=== PATIENT | female | born 1965 | race Caucasian/White ===

== ENCOUNTER 2018-06-25 19:35 | Inpatient (IN) ==
[2018-06-25] MEDS ORDERED: *HR* EPINEPHrine 1 MG/ML AMPUL IM ONE (20:15)
[2018-06-25] MEDS ORDERED: Famotidine 20 MG/2 ML VIAL IVP ONE (20:15)
--- NOTE | 2018-06-25 20:15 | Emergency Department Note ---
Disposition Referrals: NONE,PCP [Primary Care Provider] - Allergic Reaction HPI - General Chief complaint: ED Allergic Reaction Stated complaint: Allergic Reaction Time Seen by Provider: 06/25/18 19:52 Source: patient Limitations: no limitations Nursing Notes Reviewed: Yes Vital Signs Reviewed: Yes - History of Present Illness HPI Narrative: 53 yo F with history of - Related Data Home Medications Medication Instructions Recorded Confirmed Oxycodone HCl [Roxybond] 5 mg PO PRN PRN 06/03/18 06/03/18 Tizanidine HCl [Zanaflex] 4 mg PO TID 06/03/18 06/03/18 Previous Rx's Medication Instructions Recorded Venlafaxine XR (24 HR) [Effexor Xr] 150 mg PO DAILY 30 Days #30 02/25/17 cap.er.24h Allergies Allergy/AdvReac Type Severity Reaction Status Date / Time iodine Allergy Severe HIVES/ITCHI Verified 05/03/18 08:53 NG/SWELLING clarithromycin [From Biaxin] AdvReac Vomiting Verified 05/03/18 08:53 codeine AdvReac Vomiting Verified 05/03/18 08:53 Review of Systems: ROS per history of present illness, all other systems reviewed and negative or normal. All systems ED: reviewed and negative except as stated. Review of Systems: As Per HPI Past Medical History - Past Medical History Medical history: Reports: fibromyalgia, hypertension, other Surgical history: Reports: breast surgery, , hip replacement, hysterectomy, orthopedic, other, other Psychiatric history: Reports: anxiety, depression - Social History Smoking Status: Never smoker Smokeless Tobacco Status: No Alcohol use: Reports: none Drug use: Reports: marijuana Physical Exam General: Conversant. No apparent distress. Follow commands. Appears stated age. Neck: No JVD. Trachea midline. Neck supple. Eyes: PERRL. No scleral icterus. HENT: Normocephalic and atraumatic. Moist mucus membranes. Cardiovascular: Regular rate and rhythm. Normal S1 and S2. No murmurs appreciated. Normal capillary refill. Extremities well perfused with 2+ distal pulses bilaterally. No edema. Pulmonary: Normal and equal breath sounds bilaterally, anteriorly and posteriorly. No wheezes, rales, or rhonchi. Not in respiratory distress. Speaks in full sentences. Abdomen: Soft, nondistended, and tontender. No bruits or masses. No guarding. Neuro: Alert and oriented x3. No slurred speech. No focal deficits noted. Skin: Musculoskeletal: No bony abnormalities visualized. Moves all extremities. Psych: Normal mood. Pleasant. Makes appropriate eye contact. - General Limitations: no limitations General appearance: alert, in no apparent distress Course Vital Signs Temperature 98.1 F 06/25/18 19:40 Pulse Rate 93 06/25/18 19:40 Respiratory Rate 18 06/25/18 19:40 Blood Pressure 128/81 06/25/18 19:40 O2 Sat by Pulse Oximetry 97 06/25/18 19:40 Temperature 98.1 F 06/25/18 20:12 Pulse Rate 90 06/25/18 20:12 Respiratory Rate 22 06/25/18 20:12 Blood Pressure 131/82 06/25/18 20:12 O2 Sat by Pulse Oximetry 100 06/25/18 20:12 Oxygen Delivery Oxygen Delivery Room Air
[2018-06-25] MEDS ORDERED: methylPREDNISolone 125 MG/2 ML VIAL IVP ONE (20:34)
--- NOTE | 2018-06-25 20:38 | Emergency Department Note ---
Disposition Clinical Impression: Anaphylaxis Qualifiers: Encounter type: initial encounter Qualified Code(s): T78.2XXA - Anaphylactic shock, unspecified, initial encounter Disposition: Admitted As Inpatient Condition: Good Referrals: NONE,PCP [Non-Partnered Physician] - Forms: ED Satisfaction Letter Allergic Reaction HPI - General Chief complaint: ED Allergic Reaction Stated complaint: Allergic Reaction Time Seen by Provider: 06/25/18 19:52 Source: patient Limitations: no limitations Nursing Notes Reviewed: Yes Vital Signs Reviewed: Yes - History of Present Illness HPI Narrative: Patient presenting to the emergency department for evaluation of possible allergic reaction. Patient had an infected hip joint which underwent surgery approximately [address] Coleman. Patient grew staph aureus and was placed on vancomycin. Patient has PICC line in place. Patient is receiving antibiotics for the last 3 weeks. 4 days ago she noticed the development of her rash. Rash is been progressive in nature involving the chest face and back. Patient also has some involvement around the surgery site itself. Erythematous rash without specific earache area. Concern for drug rash. Patient was given her last dose of vancomycin at 10:30 AM yesterday. Patient was placed on Levaquin. Patient has received 1 dose of Levaquin. Patient states that she started to have some shortness of breath as well as a feeling the middle of her throat. She was unsure if this was worsening allergic reaction versus anxiety. Patient will undergo further evaluation for anaphylaxis versus other. Basic blood work and a vancomycin random level will be checked. - Related Data Home Medications Medication Instructions Recorded Confirmed Oxycodone HCl [Roxybond] 5 mg PO PRN PRN 06/03/18 06/03/18 Tizanidine HCl [Zanaflex] 4 mg PO TID 06/03/18 06/03/18 Previous Rx's Medication Instructions Recorded Venlafaxine XR (24 HR) [Effexor Xr] 150 mg PO DAILY 30 Days #30 02/25/17 cap.er.24h Allergies Allergy/AdvReac Type Severity Reaction Status Date / Time iodine Allergy Severe HIVES/ITCHI Verified 05/03/18 08:53 NG/SWELLING clarithromycin [From Biaxin] AdvReac Vomiting Verified 05/03/18 08:53 codeine AdvReac Vomiting Verified 05/03/18 08:53 All systems ED: reviewed and negative except as stated. Review of Systems: As Per HPI Constitutional: Denies: fever, chills ENT ED: Denies: congestion Cardiovascular: Denies: chest pain Respiratory: Reports: dyspnea. Denies: cough, wheezes Gastrointestinal: Denies: abdominal pain, nausea, vomiting, diarrhea Genitourinary: Denies: urgency, dysuria Musculoskeletal: Denies: back pain Integumentary: Reports: rash Past Medical History - Past Medical History Medical history: Reports: fibromyalgia, hypertension, other Surgical history: Reports: breast surgery, , hip replacement, hysterectomy, orthopedic, other, other Psychiatric history: Reports: anxiety, depression - Social History Smoking Status: Never smoker Smokeless Tobacco Status: No Alcohol use: Reports: none Drug use: Reports: marijuana Physical Exam General: no acute distress Head: Normocephalic Atraumatic Eyes: PERRL, EOMI ENT: Airway patent, no stridor Neck: supple, no meningismus Chest: Lungs clear to auscultation bilateral Cardiac: Regular rate and rhythm, no murmurs, rubs or gallops Abdomen: soft, nontender, nondistended; no guarding, rebound, or tenderness to percussion Musculoskeletal: Calves symmetric, nontender. Skin: Erythematous rash to the bilateral maxilla as well as to the anterior chest is and back. Patient rash continues down her back into her leg and is around her incision site. Neuro: Alert and Oriented to person, place, and time; No obvious focal deficit. - General Limitations: no limitations General appearance: alert, in no apparent distress Course Course Narrative: Blood pressure stable, worsening rash and now associated subjective shortness of breath. Patient without significant comorbidities. IMepinephrine given as well as Benadryl Solu-Medrol and Pepcid. - Reevaluation(s) Reevaluation #1: Patient's rash is starting to improve. Patient no longer has significant erythema throughout her cheeks and is now more of a light pink. Patient states she is feeling somewhat better but is not back to baseline. - Consultations Consultation #1: Discussed with hospitalist. Patient accepted for admission. Vital Signs Temperature 98.1 F 06/25/18 19:40 Pulse Rate 93 06/25/18 19:40 Respiratory Rate 18 06/25/18 19:40 Blood Pressure 128/81 06/25/18 19:40 O2 Sat by Pulse Oximetry 97 06/25/18 19:40 Temperature 98.1 F 06/25/18 20:12 Pulse Rate 90 06/25/18 20:12 Respiratory Rate 22 06/25/18 20:12 Blood Pressure 131/82 06/25/18 20:12 O2 Sat by Pulse Oximetry 100 06/25/18 20:12 Oxygen Delivery Oxygen Delivery Room Air Allergic Reaction - Medical Records Medical records reviewed: Yes I reviewed the patient's medical records. - Lab Data Lab results reviewed: Yes I reviewed the patient's lab results. Result diagrams: 06/25/18 20:45 06/25/18 20:45 Lab Results 06/25/18 06/25/18 Range/Units 20:45 20:45 WBC 5.4 D (4.3-11.1) K/mcL RBC 4.12 (3.82-4.97) M/mcL Hgb 10.9 L (11.5-15.4) g/dL Hct 34.2 L (35.3-44.9) % MCV 83.0 (83.0-100.0) fL MCH 26.5 L (28.0-33.3) pg MCHC 31.9 (31.6-35.5) g/dL RDW 14.2 (11.5-14.5) % Plt Count 220 (140-400) K/mcL MPV 10.4 (9.4-12.4) fL Immature Gran % 0.2 (0-4) % Seg Neutrophils % 69.4 % Lymphocytes % 24.3 % Monocytes % 4.2 % Eosinophils % 1.5 % Basophils % 0.4 % Neutrophils # 3.8 (1.6-8.9) K/mcL Lymphocytes # 1.3 (0.6-4.6) K/mcL Monocytes # 0.2 (0.0-1.3) K/mcL Eosinophils # 0.1 (0.0-0.6) K/mcL Basophils # 0.0 (0.0-0.2) K/mcL Sodium 138 (136-145) mEq/L Potassium 3.1 L (3.5-5.1) mEq/L Chloride 102 (98-107) mEq/L Carbon Dioxide 24 (23-29) mEq/L BUN 18 (6-20) mg/dL Creatinine 0.96 (0.60-1.20) mg/dL Est GFR ( Amer) > 60 (> 60) Est GFR (Non-Af Amer) > 60 (> 60) BUN/Creatinine Ratio 19 (6-26) Glucose 135 H (70-105) mg/dL Calculated Osmolality 290 (280-300) Calcium 9.7 (8.6-10.3) mg/dL Random Vancomycin 7 mcg/mL - EKG Data EKG attestation: Yes I reviewed and interpreted this EKG. EKG results narrative: EKG shows sinus tachycardia with heart rate of 105 NH 141 QRS 81 QTC 482ST elevations or depressions. Tachycardia compared to 12/05/17.
[2018-06-25 21:11] LABS: Basophils % 0.4 %; Eosinophils # 0.1 K/mcL (0.0-0.6); Eosinophils % 1.5 %; Hematocrit 34.2 % (35.3-44.9); Hemoglobin 10.9 g/dL (11.5-15.4); Immature Granulocytes % 0.2 % (0-4); Lymphocytes # 1.3 K/mcL (0.6-4.6); Lymphocytes % 24.3 %; Mean Corpuscular HGB Conc 31.9 g/dL (31.6-35.5); Mean Corpuscular Hemoglobin 26.5 pg (28.0-33.3); Mean Platelet Volume 10.4 fL (9.4-12.4); Monocytes # 0.2 K/mcL (0.0-1.3); Monocytes % 4.2 %; Neutrophils # 3.8 K/mcL (1.6-8.9); Platelet Count 220 K/mcL (140-400); Red Blood Count 4.12 M/mcL (3.82-4.97); Red Cell Distribution Width 14.2 % (11.5-14.5); Segmented Neutrophils % 69.4 %
[2018-06-25] MEDS ORDERED: *HR* LORazepam 2 MG/ML VIAL IVP ONE (21:17)
[2018-06-25 21:31] LABS: BUN/Creatinine Ratio 19 (6-26); Blood Urea Nitrogen 18 mg/dL (6-20); Calcium 9.7 mg/dL (8.6-10.3); Carbon Dioxide 24 mEq/L (23-29); Chloride 102 mEq/L (98-107); Glucose 135 mg/dL (70-105); Osmolality,Calculated 290 (280-300); Potassium 3.1 mEq/L (3.5-5.1); Sodium 138 mEq/L (136-145); Vancomycin,Random 7 mcg/mL; eGFR For Non-African Americans > 60 (> 60)
[2018-06-26] MEDS: Potassium Chloride Elixir 20 MEQ/15 ML UDC PO ONE ×3 (00:12→04:45)
[2018-06-26] MEDS ORDERED: Acetaminophen 325 MG TABLET PO PRN (00:21)
[2018-06-26] MEDS ORDERED: Ringers Solution, Lactated 1,000 ML IVC SCH (00:30)
--- NOTE | 2018-06-26 01:28 | Internal Med History&Physical ---
Date of Encounter: 06/25/18 Time of Encounter: 22:00 Internal Medicine - H&P: HPI Chief complaint: rash Admitted From: Home Plans for Post Hospital Care: Home History of present illness: Kia Tay is a 53 year old woman with bilateral hip arthroplasties who underwent revision of the right side in April 2018 complicated by a postoperative infection found the next month with irrigation debridement per formed 3 weeks ago. OR cultures reveled MSSA. She was discharged with a PICC line on vancomycin. She is scheduled to complete it in 2 days as per her but comes in now complaining of an extensive pruriginous rash that commenced about 4 days ago progressing from her face to her chest and back. Last dose of vancomycin was yesterday morning and she contacted her surgeon Dr. Coleman who advised her to stop that and was placed on oral levofloxacin, receiving her first dose today. She comes to the ER due to the worsening symptoms as she started to feel short of breath and tingling in her throat. In the ER she was given 125mg methylprednisolone, 25 mg diphenhydramine, 40 mg famotidine and 0.3 mg of epinephrine. She felt better but she is admitted for further observation. At this time she has no complaints. Vitals: Reviewed General: Well-developed female lying in bed in no acute distress. Skin: Extensive morbilliform, erythematous blanching rash on her face, chest and back. HEENT: Moist mucous membranes. No conjunctivae pallor. Neck: No lymphadenopathy. No JVD. No carotid bruits. No palpable thyroid. Chest: Normal thoracic expansion. Normal breath sounds. Clear to auscultation. Heart: Normal S1 & S2; rhythmic. No rubs or murmurs. Abdomen: Non-distended, soft and non-tender to palpation. No peritoneal reaction. Extremities: No clubbing, cyanosis or edema. No calf tenderness. Normal distal pulses. Neurological: Awake, alert and oriented to person, place and time. No focal deficits. Psych: Affect appropriate. Assessment/Plan 1.Allergic reaction: drug induced, secondary to vancomycin. Will list this on her chart as an allergy so it is avoided in the future. Will provide fluids and hydroxyzine as needed for pruritus. 2. Postoperative hip infection: Cultures depict MSSA therefore a betalactam antibiotic would have been the more suitable drug choice. At this juncture she tells me she is scheduled for stoppage and removal of the PICC line a day or two from now therefore there will be no need to continue any antibiotics at this point so as not to bring on any confounding symptoms/signs to her allergic reaction. 3. Obesity: Counseled and educated on therapeutic lifestyle changes for weight loss as it will be of benefit in controlling comorbidities. Director Print guido leo advised. 4. Due to prophylaxis: SubQ heparin ordered. Past Med Surg Social Fam HX - Past Medical History Medical history: fibromyalgia, hypertension, other Additional medical history: lupus skin. osteoarthritis. anxiety. depression. R hip aseptic loosening Psychiatric history: anxiety, depression - Past Surgical History Surgical History: breast surgery, , hip replacement, hysterectomy, orthopedic, other, other Additional surgical history: left ankle surgery. bilateral carpal tunnel release. hip surgery - Social History Smoking Status: Never smoker Smokeless Tobacco Status: No Alcohol use: none Drug use: marijuana - Family History Mother Adopted: No Family Member Ethnicity: Non- Living Status: Still Living Hx Family Cardiac Disorders: No Hx Family Respiratory Disorders: No Hx Family Cancer: Yes (Cervical cancer, breast cancer X's 3) Hx Family GI Disorders: Yes Hx Family Endocrine Disorder: No Hx Family Neuromuscular Disorders: No Hx Family Neurologic Disorders: No Hx Family HEENT Disorders: No Hx Family Autoimmune Disorders: No Internal Medicine - H&P: Meds Venlafaxine XR (24 HR) [Effexor Xr] 150 mg PO DAILY 30 Days #30 cap.er.24h 02/25/17 [Rx] Oxycodone HCl [Roxybond] 5 mg PO PRN PRN 06/03/18 [History] Tizanidine HCl [Zanaflex] 4 mg PO TID 06/03/18 [History] Allergy/AdvReac Type Severity Reaction Status Date / Time iodine Allergy Severe HIVES/ITCHI Verified 05/03/18 08:53 NG/SWELLING vancomycin AdvReac Intermediate Rash Verified 06/26/18 01:23 clarithromycin [From Biaxin] AdvReac Vomiting Verified 05/03/18 08:53 codeine AdvReac Vomiting Verified 05/03/18 08:53 All Systems PM: A 10-system review of systems was performed and is negative for pertinent findings except as documented above in the HPI. - Constitutional Vitals: Temp Pulse Resp BP Pulse Ox 97.8 F 77 16 142/82 98 06/25/18 23:50 06/25/18 23:50 06/25/18 23:50 06/25/18 23:50 06/25/18 23:50 Exam: . Internal Med - H&P Results - Labs CBC & Chem 7: 06/25/18 20:45 06/25/18 20:45 Labs: Short CBC 06/25/18 Range/Units 20:45 WBC 5.4 D (4.3-11.1) K/mcL Hgb 10.9 L (11.5-15.4) g/dL Hct 34.2 L (35.3-44.9) % Plt Count 220 (140-400) K/mcL Neutrophils # 3.8 (1.6-8.9) K/mcL BMP 06/25/18 20:45 Sodium 138 Potassium 3.1 L Chloride 102 Carbon Dioxide 24 BUN 18 Creatinine 0.96 Glucose 135 H Calcium 9.7 - Time Spent With Patient Total time spent is greater than 50% in coordination of care (as documented) at patient's floor/unit and/or counseling patient: Greater than 35 minutes
[2018-06-26] MEDS: *HR* Heparin 5,000 UNIT/ML VIAL SQ SCH ×2 (04:44→18:34)
--- NOTE | 2018-06-26 07:39 | Orthopedics Progress Note ---
Date of Encounter: 06/26/18 Time of Encounter: 07:37 Subjective Interval history: Patient seen this morning, well known to me presently being treated for infected left hip superficial. Patient responding well to IV vancomycin, started having complaints of a rash on her chest on Wednesday. Patient was asked to come to the office reported that she did not have a ride. Patient was told to discontinue vancomycin, and was switched to levofloxacin 750 mg once a day. Patient states that the redness got worse in the ER. On exam she does have a rash all over her body, right hip clean dry and intact no active drainage. We will apply sterile dressing. Recommend removal of PICC line, continue on by mouth levofloxacin 750 mg a day. Follow-up on Wednesday. Objective Vital signs: Vital Signs Temp Pulse Resp BP Pulse Ox 06/26/18 03:44 97.8 F 94 16 122/68 98 06/25/18 23:50 97.8 F 77 16 142/82 98 06/25/18 23:16 16 126/64 06/25/18 20:12 98.1 F 90 22 131/82 100 06/25/18 20:08 90 22 131/82 100 06/25/18 19:40 98.1 F 93 18 128/81 97 Intake and Output 06/25/18 06/25/18 06/26/18 15:59 23:59 07:59 Other: # Voids 1 Weight 81.2 kg 80.5 kg Patient Weight 06/26/18 23:59 Weight 80.5 kg - Labs CBC & BMP: 06/25/18 20:45 06/25/18 20:45 Labs: Abnormal lab results Hgb 10.9 g/dL (11.5-15.4) L 06/25/18 20:45 Hct 34.2 % (35.3-44.9) L 06/25/18 20:45 MCH 26.5 pg (28.0-33.3) L 06/25/18 20:45 Potassium 3.1 mEq/L (3.5-5.1) L 06/25/18 20:45 Glucose 135 mg/dL (70-105) H 06/25/18 20:45 Consult Discharge Plan - Plan Referrals: Matt Canada [Primary Care Provider] -
[2018-06-26] MEDS ORDERED: ALPRAZolam 1 MG TABLET PO ONE (09:49)
[2018-06-26] MEDS ORDERED: predniSONE 20 MG TABLET PO SCH (10:00)
[2018-06-26] MEDS: levoFLOXacin 750 MG TABLET PO SCH ×2 (10:24→10:25)
[2018-06-26] MEDS: Famotidine 20 MG TABLET PO SCH ×2 (10:24→20:23)
[2018-06-26] MEDS: ALPRAZolam 1 MG TABLET PO SCH ×2 (16:48→20:23)
[2018-06-26] MEDS ORDERED: traMADol 50 MG TABLET PO ONE (20:30)
[2018-06-26] MEDS: *HR* HYDROcodone/Acet 5/325 mg TABLET PO PRN (21:49)
--- NOTE | 2018-06-26 23:55 | Internal Med Progress Note ---
Hospitalist Progress Note - Encounter Date of Encounter: 06/26/18 Time of Encounter: 19:00 - Subjective Interval History: SUBJECTIVE: The patient is a 54-year-old woman with bilateral hip arthroplasties, who underwent revision of the right side in April 2018; complicated by a postoperative infection. The infection was treated with irrigation and debridement performed 3 weeks ago. Or cultures showed MSSA. The patient was put on IV vancomycin. She was supposed to finish it sometime tomorrow. She developed an extensive pruritic rash. Progressing from her face to her chest and back. Associated with a feeling of dyspnea and tingling in the throat. We suspected to be developing allergic reaction to vancomycin. It was stopped by her orthopedic surgeon 2 days ago; substituted by Levaquin. The patient feels very nervous. He was very agitated today morning cursing at her nurse. She pulled out her PICC line. It was in the afternoon, when she left the hospital floor to smoke marijuana. OBJECTIVE: Skin: Free of rash and discoloration. ENMT: Oral/pharyngeal mucosa is normal in appearance. Eyes: Sclera is white. There is no discharge from eyes. Respiratory: Normal breath sounds; no crackles or wheezes. CV: Heart is regular; no gallop or murmur. GI: Abdomen is soft and not tender. There is no palpable mass or visceromegaly. Neuro: There is no focal deficits. ADDITIONAL DATA: ASSESSMENT AND PLAN: Allergic reaction, drug induced. Likely secondary to vancomycin. She got 1 dose of IV Solu-Medrol. She will be getting oral prednisone every morning. Additionally, she will be treated with Benadryl and famotidine. Postoperative her hip infection. We will continue Levaquin, started by her orthopedic surgeon. Anxiety. Likely polysubstance abuse. I will keep her on Xanax at 1 mg by mouth 3 times a day. xxx. I instructed the patient not to leave the floor. If it happens again, she would be discharged home. The patient has been already seen by Dr. Coleman, orthopedic surgery. - Exam Vitals: Temp Pulse Resp BP Pulse Ox 98.5 F 78 16 122/75 94 06/26/18 23:06 06/26/18 23:06 06/26/18 23:06 06/26/18 23:06 06/26/18 23:06 Exam: xx - Assessment and Plan (1) Allergic reaction caused by a drug Current Visit: Yes Status: Acute (2) Postoperative wound infection of left hip Current Visit: Yes Status: Acute (3) Anxiety Current Visit: Yes Status: Chronic (4) Polysubstance abuse Current Visit: Yes Status: Acute - Time Spent with Patient Total time spent is greater than 50% in coordination of care (as documented) at patient's floor/unit and/or counseling patient: 25 - 35 minutes Plan of Care Discussed with: patient Internal Medicine: Result - Labs CBC & Chem 7: 06/25/18 20:45 06/25/18 20:45 Consult Discharge Plan - Plan Referrals: Matt Canada [Primary Care Provider] - (Unable to schedule follow up appointment due to office being closed on the weekend. Please call Wednesday to schedule hospital follow up appointment for 7-10 days from date of discharge. )
[2018-06-27] MEDS: *HR* Heparin 5,000 UNIT/ML VIAL SQ SCH ×2 (04:32→18:17)
[2018-06-27] MEDS: *HR* HYDROcodone/Acet 5/325 mg TABLET PO PRN (04:35)
[2018-06-27] MEDS ORDERED: Famotidine 20 MG/2 ML VIAL IVP ONE (05:26)
[2018-06-27] MEDS ORDERED: methylPREDNISolone 125 MG/2 ML VIAL IVP ONE (05:26)
--- NOTE | 2018-06-27 05:33 | Event Note ---
Date of Encounter: 06/27/18 Time of Encounter: 04:43 Alerted by patient's nurse MALCOLM Madison the patient was admitted with rash which is now spreading down her trunk. Face is red and swollen. Rash present on palms and soles. Patient given 50 mg by mouth Benadryl at approximately 04:40. Went to see patient who was resting in bed and reporting itching, difficulty swallowing, and shortness of breath. Discussed patient with Dr. Dunne who went to see the pt. with me. Pt. admitted following rash that began after being placed on vancomycin for MSSA by Dr. Coleman. Vanc was DCd and pt. placed on PO levaquin. Pt. had previously refused IV access. Pt. now has IV access after discussing the importance of access to her. IVP famotidine 20 mg once and IVP Solu-Medrol 125 mg once ordered. On exam, pt. able to eat, not dyspneic. Nurse instructed to continue monitoring pt. closely and alert me immediately of any adverse changes.
[2018-06-27] MEDS: ALPRAZolam 1 MG TABLET PO SCH ×3 (08:54→20:49)
[2018-06-27] MEDS: levoFLOXacin 750 MG TABLET PO SCH (08:54)
--- NOTE | 2018-06-27 09:55 | Electrocardiograph Report ---
[place] [id number] Test Date: 2018-06-25 Pat Name: Kia Tay Department: EXAM10 Room: 3B33 Gender: F Microbiological Analyst: : 1965 Requested By: Maicol Aragon Order Number: [id number] Reading MD: Efrain Marquez Measurements Intervals [place] Rate: 105 P: 60 DE: 141 QRS: 15 QRSD: 81 T: 32 QT: 366 QTc: 482 Interpretive Statements Sinus tachycardia Abnormal R-wave progression, early transition Electronically Signed On 06-27-2018 9:54:20 EDT by Efrain Marquez
--- NOTE | 2018-06-27 12:32 | Orthopedics Progress Note ---
Date of Encounter: 06/27/18 Time of Encounter: 10:40 - Assessment and Plan (1) Status post right hip replacement Current Visit: Yes Status: Chronic (2) Allergic reaction caused by a drug Current Visit: Yes Status: Acute Qualifiers: Encounter type: initial encounter Qualified Code(s): T78.40XA - Allergy, unspecified, initial encounter Subjective Principal diagnosis: rash Interval history: Patient inpatient following development of red rash and subsequent facial swelling with shortness of breath. Patient has been on Vancomycin IV via PICC since 06/02/18. Patient started on Rifampin 06/13/18. Patient states that it developed end of last week appx 5 days ago beginning on face/neck and spreading down her body. Today she states that she has severe itching with worsening of rash since admission yesterday per patient. She denies any concerns with her hip at present other than pain when laying directly onto the hip. Patient is status post I&D right hip 06/03/18, right hip revision 05/09/18, and right total hip replacement originally placed in 2007. On exam patient resting in bed in no acute distress alert and oriented x 3. Patient noted to have facial swelling with erythematous papular rash confluent and diffuse to face and neck as well as back, chest and abdomen. Scattered papules noted to arms, palms, and lower legs as well. Excoriations noted s urrounding right hip dressing and bilateral buttocks. Dressing c/d/i. No drainage noted. [place] noted to be in place with no incisional gapping. Dressing removed, incision cleansed, yolande removed, and honeycomb reapplied. Patient tolerated well. Patient neurovascularly intact and ambulating independently. Case discussed and reviewed with Dr. Coleman Patient c/o worsening itching/rash. Page placed to hospitalist - awaiting return call. Monitor incision for reaction Leave dressing in place. Continue WBAT Patient encouraged if any worsening of shortness of breath or rash she should page nursing immediately. Discussed nature of reaction and need for close monitoring. Patient verbalized understanding. Objective Vital signs: Vital Signs Temp Pulse Resp BP Pulse Ox 06/27/18 11:26 98.1 F 69 17 136/80 99 06/27/18 07:30 97.8 F 86 17 129/83 100 06/27/18 05:15 97.5 F L 71 16 151/82 100 06/27/18 02:10 97.6 F 66 16 132/70 99 06/26/18 23:06 98.5 F 78 16 122/75 94 06/26/18 18:56 98.3 F 84 16 146/78 98 06/26/18 16:59 99.0 F 73 16 154/82 98 Intake and Output 06/26/18 06/27/18 06/27/18 23:59 07:59 15:59 Intake Total 1000 / 1000 Balance 1000 / 1000 Intake: IV Fluids 1000 / 1000 Other: Weight 81.1 kg Patient Weight 06/27/18 23:59 Weight 81.1 kg - Labs CBC & BMP: 06/25/18 20:45 06/25/18 20:45 Labs: Abnormal lab results Hgb 10.9 g/dL (11.5-15.4) L 06/25/18 20:45 Hct 34.2 % (35.3-44.9) L 06/25/18 20:45 MCH 26.5 pg (28.0-33.3) L 06/25/18 20:45 Potassium 3.1 mEq/L (3.5-5.1) L 06/25/18 20:45 Glucose 135 mg/dL (70-105) H 06/25/18 20:45 Consult Discharge Plan - Plan Referrals: Matt Canada [Primary Care Provider] - 07/05/18 1:00 pm ()
[2018-06-27] MEDS: methylPREDNISolone 125 MG/2 ML VIAL IVP SCH ×2 (15:13→18:19)
[2018-06-27] MEDS: Famotidine 20 MG/2 ML VIAL IVP SCH (18:18)
[2018-06-28] MEDS: methylPREDNISolone 125 MG/2 ML VIAL IVP SCH ×4 (00:53→18:04)
[2018-06-28 04:55] LABS: Hemoglobin 11.8 g/dL (11.5-15.4); Mean Corpuscular HGB Conc 31.9 g/dL (31.6-35.5); Mean Corpuscular Hemoglobin 26.6 pg (28.0-33.3); Mean Corpuscular Volume 83.3 fL (83.0-100.0); Mean Platelet Volume 10.4 fL (9.4-12.4); Platelet Count 268 K/mcL (140-400); Red Blood Count 4.44 M/mcL (3.82-4.97); Red Cell Distribution Width 14.1 % (11.5-14.5)
[2018-06-28 05:21] LABS: BUN/Creatinine Ratio 23 (6-26); Blood Urea Nitrogen 18 mg/dL (6-20); Calcium 9.3 mg/dL (8.6-10.3); Carbon Dioxide 24 mEq/L (23-29); Chloride 108 mEq/L (98-107); Glucose 137 mg/dL (70-105); Osmolality,Calculated 292 (280-300); Potassium 3.6 mEq/L (3.5-5.1); Sodium 139 mEq/L (136-145); eGFR For Non-African Americans > 60 (> 60)
[2018-06-28] MEDS: *HR* Heparin 5,000 UNIT/ML VIAL SQ SCH ×2 (06:20→18:01)
[2018-06-28] MEDS: Famotidine 20 MG/2 ML VIAL IVP SCH ×2 (06:21→18:01)
--- NOTE | 2018-06-28 06:26 | Internal Med Progress Note ---
Hospitalist Progress Note - Encounter Date of Encounter: 06/27/18 Time of Encounter: 19:00 - Subjective Interval History: SUBJECTIVE: Her rash seems to be of more intensity; it is red. It is located on her face, trunk and partially on extremities. The patient is very anxious. She has underlying anxiety. She used to smoke THC and at home. 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 She got 125 mg of IV Solu- Medrol. --- The patient is a 54-year-old woman with bilateral hip arthroplasties, who underwent revision of the right side in April 2018; complicated by a postoperative infection. The infection was treated with irrigation and debridem ent performed 3 weeks ago. Cultures showed MSSA. The patient was put on IV vancomycin. She was supposed to finish it about 2 days after this admission. She developed an extensive pruritic rash. Progressing from her face to her chest and back. Associated with a feeling of dyspnea and tingling in the throat. We suspected her to be developing allergic reaction to vancomycin. It was stopped by her orthopedic surgeon 2 days before this admission; substituted by Levaquin. OBJECTIVE: Skin: See above ENMT: Oral/pharyngeal mucosa is normal in appearance. Eyes: Sclera is white. There is no discharge from eyes. Respiratory: Normal breath sounds; no crackles or wheezes. CV: Heart is regular; no gallop or murmur. GI: Abdomen is soft and not tender. There is no palpable mass or visceromegaly. Neuro: There is no focal deficits. ADDITIONAL DATA: ASSESSMENT AND PLAN: Allergic reaction, drug induced. Likely secondary to vancomycin. It did not get any better with oral medications I had to use recently. We will have IV access, again. I will keep her on scheduled Solu-Medrol at 60 mg every 6 hours and twice a day IV famotidine. She gets 50 mg of oral Benadryl every 6 hours. Postoperative her hip infection. We will continue Levaquin, started by her orthopedic surgeon. Anxiety. Likely polysubstance abuse. I will keep her on Xanax at 2 mg by mouth 3 times a day (I increased her dose today). Xxx. I instructed the patient not to leave the floor (she did it on 06/27). If it happens again, she would be discharged home. - Exam Vitals: Temp Pulse Resp BP Pulse Ox 97.7 F 67 18 150/72 97 06/28/18 04:05 06/28/18 04:05 06/28/18 04:05 06/28/18 04:05 06/28/18 04:05 Exam: xx - Assessment and Plan (1) Allergic reaction caused by a drug Current Visit: Yes Status: Acute (2) Postoperative wound infection of left hip Current Visit: Yes Status: Acute (3) Anxiety Current Visit: Yes Status: Chronic (4) Polysubstance abuse Current Visit: Yes Status: Acute - Time Spent with Patient Total time spent is greater than 50% in coordination of care (as documented) at patient's floor/unit and/or counseling patient: 25 - 35 minutes Plan of Care Discussed with: patient Internal Medicine: Result - Labs CBC & Chem 7: 06/28/18 04:23 06/28/18 04:23 Labs: Short CBC 06/28/18 Range/Units 04:23 WBC 7.4 (4.3-11.1) K/mcL Hgb 11.8 (11.5-15.4) g/dL Hct 37.0 (35.3-44.9) % Plt Count 268 (140-400) K/mcL BMP 06/28/18 04:23 Sodium 139 Potassium 3.6 Chloride 108 H Carbon Dioxide 24 BUN 18 Creatinine 0.77 Glucose 137 H Calcium 9.3 Consult Discharge Plan - Plan Referrals: Matt Canada [Primary Care Provider] - 07/05/18 1:00 pm () (1) Allergic reaction caused by a drug Qualifiers: Encounter type: initial encounter Qualified Code(s): T78.40XA - Allergy, unspecified, initial encounter
[2018-06-28] MEDS: ALPRAZolam 1 MG TABLET PO SCH ×2 (08:07→15:10)
[2018-06-28] MEDS: levoFLOXacin 750 MG TABLET PO SCH (08:07)
[2018-06-28 17:00] VITALS: BP 170/98
--- NOTE | 2018-06-29 23:49 | Discharge Summary ---
Date of Encounter: 06/28/18 Time of Encounter: 19:00 - Discharge Diagnosis (1) Allergic reaction caused by a drug Priority: Primary Status: Acute Qualifiers: Encounter type: initial encounter Qualified Code(s): T78.40XA - Allergy, unspecified, initial encounter (2) Postoperative wound infection of left hip Priority: Primary Status: Acute (3) Anxiety Priority: Primary Status: Chronic (4) Polysubstance abuse Priority: Secondary Status: Chronic Hospital course: The patient left AMA before I could reevaluate her. See my progress note from morning hours. I did not order any medications for her, as she was not available for me. - Time Spent with Patient Total time spent providing and/or coordinating discharge services: Time spent: Greater than 30 minutes (counting time for this document and for morning visit/progress note...) - Discharge Medications Prescriptions: No Action Venlafaxine HCl [Venlafaxine HCl ER] 150 mg PO DAILY Venlafaxine HCl [Venlafaxine HCl ER] 75 mg PO DAILY predniSONE [PredniSONE] 20 mg PO DAILY levoFLOXacin [Levofloxacin] 750 mg PO DAILY Gabapentin 1,800 mg PO HS Home Medications: Gabapentin 1,800 mg PO HS 06/27/18 [History] Venlafaxine HCl [Venlafaxine HCl ER] 75 mg PO DAILY 06/27/18 [History] Venlafaxine HCl [Venlafaxine HCl ER] 150 mg PO DAILY 06/27/18 [History] levoFLOXacin [Levofloxacin] 750 mg PO DAILY 06/27/18 [History] predniSONE [PredniSONE] 20 mg PO DAILY 06/27/18 [History] Allergies/Adverse Reactions: Allergy/AdvReac Type Severity Reaction Status Date / Time iodine Allergy Severe HIVES/ITCHI Verified 06/27/18 17:03 NG/SWELLING vancomycin AdvReac Intermediate Rash Verified 06/27/18 17:03 clarithromycin [From Biaxin] AdvReac Vomiting Verified 06/27/18 17:03 codeine AdvReac Vomiting Verified 06/27/18 17:03 Date of admission: 06/28/18 17:26 Primary care physician: Matt Canada - Constitutional Vitals: Temp Pulse Resp BP Pulse Ox 97.3 F L 83 18 170/98 100 06/28/18 16:57 06/28/18 16:57 06/28/18 16:57 06/28/18 16:57 06/28/18 16:57 Exam: XX - Patient Status Disposition: Left Against Medical Advice Condition: Good - Discharge Instructions Follow Up With: Matt Canada [Primary Care Provider] - 07/05/18 1:00 pm () Additional Instructions: SHE LEFT AMA -- BEFORE I COULD SEE HER...
== END 2018-06-28 18:23 | disposition left against medical advice (07) | DRG 607 ==
LOC: 3BNU 19:35 → EMEROOARM 19:35 → SUATTDRO 22:49 → 3BNU 23:52
PROVIDERS: ADMIT Internal Medicine; ATTEND Internal Medicine